=== PATIENT | male | born 1995 | race African-American/Black ===

== ENCOUNTER 2023-10-03 05:31 | Emergency (ER) | payer MEDICAID, OTHER ==
[~2023-10-03] VITALS: Ht 176.5 cm; Wt 61.9 kg
[2023-10-03] MEDS: PREDNISONE 20MG TABLET PO STA (05:49)
[2023-10-03 06:10] VITALS: PULSE 97; RESP 15; O2SAT 95
[2023-10-03] MEDS: ALBUTEROL (0.083%) 2.5MG/3ML NEB HHN STA (06:10)
[2023-10-03] MEDS: IPRATROPIUM BROMIDE (0.02%) 0.5MG/2.5ML NEB HHN STA (06:10)
[2023-10-03 07:30] VITALS: BP 125/73; PULSE 86; RESP 16; TEMP 98.6
[2023-10-03] MEDS ORDERED: ALBU6.7H15 INH (08:04)
[2023-10-03] MEDS ORDERED: P50 PO (08:04)
[2023-10-03] MEDS ORDERED: ALBU05 NEB (08:12)
== END 2023-10-03 10:30 | disposition home or self-care (01) ==
LOC: ER 05:42
DX: J45.901 Unspecified asthma with (acute) exacerbation (principal); F12.10 Cannabis abuse, uncomplicated
CPT/HCPCS: 94644; 99285; J7512; Z7610 ×2

== ENCOUNTER 2023-10-12 06:17 | Emergency (ER) | payer MEDICAID ==
[~2023-10-12] VITALS: Ht 177.8 cm; Wt 63.6 kg
[~2023-10-12 06:17] MED LIST: ALBU05 NEB; ALBU6.7H15 INH; P50 PO
[2023-10-12 06:45] VITALS: BP 141/87; TEMP 98.1
[2023-10-12] MEDS: PREDNISONE 20MG TABLET PO STA (07:00)
[2023-10-12] MEDS: IPRATROPIUM BROMIDE (0.02%) 0.5MG/2.5ML NEB HHN STA (07:36)
[2023-10-12 07:37] VITALS: PULSE 89; RESP 15; O2SAT 93
[2023-10-12] MEDS: ALBUTEROL (0.083%) 2.5MG/3ML NEB HHN STA (07:37)
[2023-10-12] MEDS ORDERED: BECL10.6 INH (08:22)
[2023-10-12] MEDS ORDERED: MONT-46 PO (08:22)
[2023-10-12] MEDS: PREDNISONE 20MG TABLET PO NR (08:50)
== END 2023-10-12 09:15 | disposition home or self-care (01) ==
LOC: ER 06:17
DX: J45.901 Unspecified asthma with (acute) exacerbation (principal); F12.90 Cannabis use, unspecified, uncomplicated
CPT/HCPCS: 71045; 94644; 99285; J7512; Z7610

== ENCOUNTER 2023-12-18 07:17 | Emergency (ER) | payer MEDICAID ==
[~2023-12-18] VITALS: Ht 177.8 cm; Wt 64.0 kg
[~2023-12-18 07:17] MED LIST changes: +BECL10.6 INH; +MONT-46 PO
[2023-12-18 07:22] VITALS: BP 117/96; TEMP 98
[2023-12-18] MEDS: PREDNISONE 20MG TABLET PO NR (08:36)
[2023-12-18 08:49] VITALS: PULSE 91; RESP 25; O2SAT 94
[2023-12-18] MEDS: IPRATROPIUM BROMIDE (0.02%) 0.5MG/2.5ML NEB HHN NR (08:50)
[2023-12-18] MEDS: ALBUTEROL (0.083%) 2.5MG/3ML NEB HHN SCH (08:50)
[2023-12-18 09:42] VITALS: PULSE 92; RESP 22; O2SAT 95
[2023-12-18 10:12] VITALS: PULSE 95; RESP 18; O2SAT 95
[2023-12-18] MEDS ORDERED: P20 MT (10:49)
== END 2023-12-18 11:01 | disposition home or self-care (01) ==
LOC: ER 07:17
DX: J45.901 Unspecified asthma with (acute) exacerbation (principal); F12.10 Cannabis abuse, uncomplicated
CPT/HCPCS: 71045; 94640; 99285; J7512; Z7610 ×2; 94644

== ENCOUNTER 2023-12-20 07:16 | Emergency (ER) | payer MEDICAID ==
[~2023-12-20] VITALS: Ht 177.8 cm; Wt 73.0 kg
[~2023-12-20 07:16] MED LIST changes: +P20 MT
[2023-12-20] MEDS ORDERED: IPRA3AMP9 NEB (08:01)
[2023-12-20] MEDS ORDERED: ALBU6.7H15 INH (08:01)
[2023-12-20] MEDS ORDERED: P20 PO (08:01)
[2023-12-20] MEDS: PREDNISONE 20MG TABLET PO STA (08:02)
[2023-12-20] MEDS: IPRATROPIUM BROMIDE (0.02%) 0.5MG/2.5ML NEB HHN STA (08:05)
[2023-12-20 08:07] LABS: BASOPHILS % 0.5 % (0.0-2.0); DIFFERENTIAL COMMENT 0; EOSINOPHILS % 6.1 % (0.0-5.0); HEMATOCRIT. 49.4 % (42.0-52.0); HEMOGLOBIN. 16.2 g/dL (14.0-18.0); LYMPHOCYTES % 25.6 % (20.0-50.0); MEAN CORPUSCULAR HEMOGLOBIN 30.1 pg (28.0-32.0); MEAN CORPUSCULAR HGB CONC 32.7 g/dL (31.0-37.0); MEAN CORPUSCULAR VOLUME 91.9 fL (80.0-94.0); MEAN PLATELET VOLUME 9.9 fl (7.4-10.4); MONOCYTES % 6.7 % (2.0-8.0); NEUTROPHILS % 61.1 % (40.0-76.0); PLATELET 237 x1000/uL (130-400); RED BLOOD CELL COUNT 5.37 mill/uL (4.7-6.1); RED CELL DISTRIBUTION WIDTH 13.9 % (11.6-14.6); WHITE BLOOD COUNT 9.3 x1000/uL (4.5-11.0)
[2023-12-20 08:16] LABS: CHLORIDE 105 mEq/L (98-107); POTASSIUM 4.2 mEq/L (3.5-5.1); SODIUM 140 mEq/L (136-145)
[2023-12-20 08:17] LABS: CALCIUM 9.7 mg/dL (8.7-10.4); CARBON DIOXIDE 27 mEq/L (21-32)
[2023-12-20 08:22] LABS: GLUCOSE 95 mg/dL (70-105); UREA NITROGEN BLOOD 15 mg/dL (9-23)
[2023-12-20 08:50] VITALS: PULSE 87; RESP 22; O2SAT 98
[2023-12-20 09:00] VITALS: BP 105/65; PULSE 87; RESP 18; TEMP 98.1
[2023-12-20] MEDS: ALBUTEROL (0.083%) 2.5MG/3ML NEB HHN STA (09:20)
== END 2023-12-20 09:01 | disposition home or self-care (01) ==
LOC: ER 07:22
DX: J45.901 Unspecified asthma with (acute) exacerbation (principal); F12.90 Cannabis use, unspecified, uncomplicated
CPT/HCPCS: 80048; 85025; 36415; 71045; 93005; 99285; J7512; Z7610 ×3

== ENCOUNTER 2024-07-26 13:32 | Emergency (ER) | payer MEDICAID ==
[~2024-07-26] VITALS: Ht 180.3 cm; Wt 68.0 kg
[~2024-07-26 13:32] MED LIST changes: +IPRA3AMP9 NEB; +P20 PO
[2024-07-26 13:47] VITALS: O2SAT 98
[2024-07-26] MEDS ORDERED: IBUP-2029 MT (15:51)
[2024-07-26] MEDS ORDERED: LIDO700A30 TP (15:51)
[2024-07-26 16:00] VITALS: BP 125/77; PULSE 63; RESP 20; TEMP 36.6; O2SAT 100
== END 2024-07-26 16:03 | disposition home or self-care (01) ==
LOC: ER 13:32
DX: S20.211A Contusion of right front wall of thorax, initial encounter (principal); J45.909 Unspecified asthma, uncomplicated; F12.90 Cannabis use, unspecified, uncomplicated; Z79.51 Long term (current) use of inhaled steroids; Z79.52 Long term (current) use of systemic steroids; Z79.899 Other long term (current) drug therapy; W16.022A Fall into swimming pool striking bottom causing other injury, initial encounter; Y93.89 Activity, other specified; Y92.89 Other specified places as the place of occurrence of the external cause; Y99.8 Other external cause status
CPT/HCPCS: 71101; 99283